=== PATIENT | male | born 1960 | race Caucasian/White ===

== ENCOUNTER 2022-10-31 08:57 | Emergency (ER) | payer OTHER, SELFPAY ==
[2022-10-31 09:08] VITALS: BP 149/78; PULSE 82; RESP 16; TEMP 37.1; O2SAT 94; BMI 28.8
--- NOTE | 2022-10-31 09:34 | CT_ITS ---
WS: [id number] CT NECK TECHNIQUE: Contrast-enhanced CT of the neck with coronal and sagittal reformatted images. Suboptimal soft tissue enhancement. CLINICAL INFORMATION: swelling pain COMPARISON: None. DLP: 264.[address] scans at [facility] use at least one of these dose optimization techniques: automated e xposure control; mA and/or kV adjustment per patient size (includes targeted exams where dose is matc hed to clinical indication); or iterative reconstruction. FINDINGS: Moderate amount of retropharyngeal fluid extending from the C1-C2 articulation to the C6/C7 vertebral body. Mild edema involving the supraglottic larynx and glottis. Subglottic airway remains patent. Pa latine tonsils appear normal. Normal parapharyngeal fat. Oropharynx is patent. Parotid glands are normal. Normal submandibular glands. Normal posterior nasopharynx and parapharynge al fat. Moderate spondylitic changes cervical spine with anterior hypertrophic changes at C4-C6. No evidence of bony destruction or osteomyelitis. MRI would be more sensitive. Ossification inferior to the C1 ar ch in combination with retropharyngeal fluid can be seen with longus colli calcific tendinitis. Preve rtebral and retropharyngeal infection should be excluded. MRI could be obtained to exclude discitis/o steomyelitis as the source of infection. CT/CT neck w con* [id number] IMPRESSION: 1. Low-attenuation fluid in the retropharyngeal space extending from C1 to C6- C7 level. Distention of the retropharyngeal space measures approximately 12 mm in maximum dimension. 2. Mild edema in the posterior wall of the hypopharynx with mild edema in the level of the glottis. Airway remains patent. 3. No significant cervical lymphadenopathy. 4. Differential considerations include upper airway infection/pharyngitis, cer vical discitis/osteomyelitis, and longus colli calcific tendinitis. Infection s hould be excluded and MRI cervical spine without and with gadolinium enhancemen t recommended Notified Aurelio Combs DO at 10/31/2022 11:29 AM.
--- NOTE | 2022-10-31 09:49 | PC.PHAR ---
pt states he has an allergy to some medication but unsure what the name is asked pts ex states she doesnt have any allergies listed for him-pt states his ex ty [phone] takes care of his medications-pts ex ty verified pts medications-states the pt hasnt restarted taking the varenicline states the pharmacy had to order the medication in -
[2022-10-31] MEDS: morphine 4 mg/mL SDV 1 mL IVP (09:50)
[2022-10-31] MEDS: orphenadrine 30 mg/mL Inj 2 mL 60 MG IVP (09:50)
[2022-10-31 09:52] LABS: Basophils # 0.1 10^3/uL (0.0-0.1); Basophils % 0.7 %; Eosinophils # 0.1 10^3/uL (0.0-0.8); Eosinophils % 0.6 %; Hematocrit 43.2 % (42.0-52.0); Hemoglobin 14.3 g/dL (11.7-16.6); Lymphocytes # 4.2 10^3/uL (0.8-4.8); Lymphocytes % 25.9 %; Mean Corpuscular HGB Conc 33.1 g/dL (30.0-36.0); Mean Corpuscular Hemoglobin 29.8 pg (28.0-34.0); Mean Platelet Volume 10.9 fL (7.4-10.4); Monocytes # 1.6 10^3/uL (0.2-0.9); Neutrophils # 10.04 10^3/uL (1.8-7.7); Neutrophils % 62.5 %; Nucleated Red Blood Cells % 0 %; Platelet Count 487 10^3/cmm (130-400); Red Cell Distribution Width 13.4 % (12.1-15.1); White Blood Count 16.1 10^3/uL (4.0-10.0)
[2022-10-31] MEDS: iohexol 350 mg/mL 500 mL Btl (per mL) IV (10:12)
[2022-10-31 10:16] LABS: Alanine Aminotransferase 9 U/L (0-41); Albumin Level 4.1 g/dL (3.5-5.2); Alkaline Phosphatase 138 U/L (40-130); Anion Gap 16.9 (5-19); Aspartate Amino Transferase 9 U/L (0-40); Blood Urea Nitrogen 15 mg/dL (8-23); Calcium 9.7 mg/dL (8.5-10.5); Carbon Dioxide 29 mmol/L (22-29); Chloride 96 mmol/L (98-107); Glomerular Filtration Rate 55.9 mL/min (90-130); Glucose 154 mg/dL (65-115); Osmolality Calculated 290 mOsm/kg (285-295); Potassium 3.9 mmol/L (3.5-5.1); Sodium 138 mmol/L (136-145); Total Bilirubin 0.9 mg/dL (0.15-1.2); Total Protein 7.1 g/dL (6.6-8.7)
--- NOTE | 2022-10-31 11:21 | MR_ITS ---
WS: [id number] MRI CERVICAL SPINE NONCONTRAST AND CONTRAST TECHNIQUE: Sagittal T1, T2 and STIR imaging. Axial T2, gradient, and fiesta imaging. Post gadolinium imaging was obtained. Some images degraded due to dental artifact. CLINICAL INFORMATION: neck pain/osteomyelitis COMPARISON: CT neck earlier today. FINDINGS: Straightening of the normal cervical lordosis. Mild spondylitic changes. Slight anterolisthesis C2 on C3. Disc bulging worse at C3-C4, C5-C6 and C6-C7. Retropharyngeal fluid collection unchanged since recent CT. This extends from the C1-C2 articulation inferiorly to the C6-C7 level. Associated surrounding soft tissue and peripheral enhancement. Associa yobani soft tissue enhancement in the C1-C2 soft tissues LEFT greater than RIGHT along the longus colli. No evidence of discitis or osteomyelitis. Small amount of fluid and edema involving the LEFT cranioo ccipital articulation and C1 -2 articulation C2-C3: Mild LEFT and no significant RIGHT foraminal narrowing. Moderate facet arthropathy. C3-C4: Mild disc bulge with mild central canal stenosis. Moderate facet arthropathy. Moderate LEFT an d mild RIGHT bony foraminal narrowing. C4-C5: Mild LEFT greater than RIGHT bony foraminal narrowing. Mild facet arthropathy. C5-C6: Mild disc bulging with small LEFT pericentral protrusion. Mild central canal stenosis. Moderat e facet arthropathy. Moderate bilateral bony foraminal narrowing. C6-C7: Shallow central disc protrusion with mild central canal stenosis. Moderate to severe LEFT and mild RIGHT bony foraminal narrowing. Moderate facet arthropathy. C7-T1: Mild facet arthropathy. Spinal canal and foramen are patent. MR/MR cervical spine wo/w [id number] IMPRESSION: Some images degraded by dental hardware with susceptibly artifact 1. Again seen is the retropharyngeal fluid collection extending from the C1 le selina to the C6 level. Associated edema and surrounding soft tissue enhancement L EFT greater than RIGHT. 2. Peripheral enhancement involving the fluid collection. Differential conside rations include retropharyngeal infection which can be seen with pharyngitis ve rsus possibly longus coli calcific tendinitis. Enhancement and increased white blood cell count suspicious for infection. 3. No evidence of discitis or osteomyelitis. 4. Mild central canal stenosis C5-C6 and C6-C7 due to small disc protrusions. Notified Aurelio Combs DO at 10/31/2022 1:56 PM.
[2022-10-31] MEDS: dexamethasone 10 mg/mL INJ IVP (11:45)
[2022-10-31] MEDS: ketorolac 30 mg/mL INJ IVP (11:45)
[2022-10-31] MEDS: gadobenate dimeglumine 20 mL vial IV (12:37)
--- NOTE | 2022-10-31 13:42 | W.ED.NECK ---
HPI - Neck Pain/Injury General: Chief Complaint: Neck Pain/Injury Stated Complaint: Aron sent for neck pain, can't swallow Time Seen by Provider: 10/31/22 09:18 Source: patient Mode of arrival: ambulatory History of Present Illness: 60-year-old male presents emergency room with complaint of neck pain, sore throat difficulty swallowing and low-grade fever. Was seen and started on antibiotics for a throat infection and is progressively worsened. Has a history of diabetes mellitus. He has exquisite tenderness on the left side of his neck states he cannot turn his neck. Denies any vomiting or diarrhea no recent injury to the neck. MD complaint: neck pain Onset (ago): day(s) Radiation: left lateral Severity: severe Quality: sharp Duration: constant Relieving factors: none Exacerbating factors: none Associated symptoms: Reports fevers/chills and swollen glands; Denies dysphagia, difficulty walking, dizziness, headache(s), nausea, tingling or weakness Review of Systems Const: Reports: fever(s), chills and body aches; Denies: change in appetite, fatigue or malaise ENMT: Reports: throat pain; Denies: ear or mastoid pain, nasal discharge or nasal congestion Card: Denies: chest pain, edema, dyspnea on exertion or orthopnea Resp: Denies: dyspnea, productive cough or non-productive cough GI: Denies: nausea or dysphagia : Denies: flank pain, dysuria, urinary frequency or urinary urgency Musc: Reports: neck pain Skin/Breast: Denies: rash or pruritus Neuro: Denies: headache(s), difficulty walking or dizziness Physical Exam Const: GENERAL APPEARANCE: cooperative ORIENTATION/CONSCIOUSNESS: Yes awake, Yes oriented to person, Yes oriented to place and Yes oriented to time HENMT: COMMON NORMALS: normocephalic, atraumatic, hearing grossly normal bilaterally, external ears normal, EAC's normal, TM's normal bilaterally, Normal nasal mucous membranes and turbinates present and moist oral mucous membranes HEAD & SCALP: normocephalic and atraumatic NOSE: Normal nasal mucous membranes and turbinates present EXTERNAL EAR: Yes external ears normal EXTERNAL AUDITORY CANAL: EAC's normal TYMPANIC MEMBRANE: TM's normal bilaterally OTHER: Posterior pharyngeal wall has significant fullness mild inflammation no exudates Eye: COMMON NORMALS: Equal, round and reactive pupils present, EOMs intact bilaterally, conjunctivae normal and no scleral icterus CONJUNCTIVA: Yes conjunctivae normal PUPIL: Yes Equal, round and reactive pupils present Neck/C-Spine: COMMON NORMALS: no JVD OTHER: Exquisite tenderness on the left sternocleidomastoid muscle Lymph: LYMPHATIC: no lymphadenopathy noted and no lymphedema noted Resp: COMMON NORMALS: normal respiratory effort, No retractions, No use of accessory muscles and clear to auscultation bilaterally AUSCULTATION: clear to auscultation bilaterally Cardio: COMMON NORMALS: no JVD, regular rate, regular rhythm and No murmurs present (Cardio) RATE: regular rate RHYTHM: regular rhythm GI: COMMON NORMALS: Soft to palpation and No hepatosplenomegaly present AUSCULTATION: Yes normoactive bowel sounds PALPATION: Yes Soft to palpation, No Tenderness to palpation present (GI), No Guarding due to palpation present (GI) and Yes No hepatosplenomegaly present Extremity: COMMON NORMALS: normal to inspection, capillary refill normal, no clubbing, cyanosis or edema, no calf tenderness and no pedal edema Neuro: SENSORIUM/ORIENTATION: Yes oriented to person, Yes oriented to place and Yes oriented to time Skin: COMMON NORMALS: no rashes or lesions noted GENERAL SKIN EXAM: no rashes or lesions noted Course Vital Signs: Vital signs: Vital Signs Temperature 98.8 F 10/31/22 09:08 Pulse Rate 82 10/31/22 09:08 Respiratory Rate 16 10/31/22 09:08 Blood Pressure 149/78 10/31/22 09:08 Pulse Oximetry 94 10/31/22 09:08 Oxygen Delivery Me thod Room Air 10/31/22 09:08 MDM - Neck Pain/Injury Medical Decision Making Symptoms improved with steroids and pain medications however CT shows a retropharyngeal fluid collection. Unfortunately we do not have any ENT coverage today. There is no sign of vertebral osteomyelitis it is possible that he has what is called longus coli which is an inflammation of the anterior longitudinal ligament. We will transfer the patient for ENT coverage and neurosurgical evaluation initiate antibiotics given along with cultures done. Medical Records I reviewed the patient's medical records. Lab Data I reviewed the patient's lab results. 10/31/22 09:46 10/31/22 09:[address] 10/31/22 09:34 IMPRESSION: 1. Low-attenuation fluid in the retropharyngeal space extending from C1 to C6-C7 level. Distention of the retropharyngeal space measures approximately 12 mm in maximum dimension. 2. Mild edema in the posterior wall of the hypopharynx with mild edema in the level of the glottis. Airway remains patent. 3. No significant cervical lymphadenopathy. 4. Differential considerations include upper airway infection/pharyngitis, cervical discitis/osteomyelitis, and longus colli calcific tendinitis. Infection should be excluded and MRI cervical spine without and with gadolinium enhancement recommended Notified Aurelio Combs DO at 10/31/2022 11:29 AM. Cervical Spine MRI 10/31/22 11:21 IMPRESSION: Some images degraded by dental hardware with susceptibly artifact 1. Again seen is the retropharyngeal fluid collection extending from the C1 level to the C6 level. Associated edema and surrounding soft tissue enhancement LEFT greater than RIGHT. 2. Peripheral enhancement involving the fluid collection. Differential considerations include retropharyngeal infection which can be seen with pharyngitis versus possibly longus coli calcific tendinitis. Enhancement and increased white blood cell count suspicious for infection. 3. No evidence of discitis or osteomyelitis. 4. Mild central canal stenosis C5-C6 and C6-C7 due to small disc protrusions. Notified Aurelio Combs DO at 10/31/2022 1:56 PM. Laboratory Results WBC 16.1 10^3/uL (4.0-10.0) H 10/31/22 09:46 RBC 4.80 10^6/uL (4.1-5.3) 10/31/22 09:46 Hgb 14.3 g/dL (11.7-16.6) 10/31/22 09:46 Hct 43.2 % (42.0-52.0) 10/31/22 09:46 MCV 90.0 fl (80-94) 10/31/22 09:46 MCH 29.8 pg (28.0-34.0) 10/31/22 09:46 MCHC 33.1 g/dL (30.0-36.0) 10/31/22 09:46 RDW 13.4 % (12.1-15.1) 10/31/22 09:46 Plt Count 487 10^3/cmm (130-400) H 10/31/22 09:46 MPV 10.9 fL (7.4-10.4) H 10/31/22 09:46 Neut % (Auto) 62.5 % 10/31/22 09:46 Lymph % (Auto) 25.9 % 10/31/22 09:46 Canadian % (Auto) 10.0 % 10/31/22 09:46 Eos % (Auto) 0.6 % 10/31/22 09:46 Baso % (Auto) 0.7 % 10/31/22 09:46 Neut # (Auto) 10.04 10^3/uL (1.8-7.7) H 10/31/22 09:46 Lymph # (Auto) 4.2 10^3/uL (0.8-4.8) 10/31/22 09:46 Canadian # (Auto) 1.6 10^3/uL (0.2-0.9) H 10/31/22 09:46 Eos # (Auto) 0.1 10^3/uL (0.0-0.8) 10/31/22 09:46 Baso # (Auto) 0.1 10^3/uL (0.0-0.1) 10/31/22 09:46 Nucleated RBC % (auto) 0 % 10/31/22 09:46 Nucleated RBCs # 0.0 /100WBC 10/31/22 09:46 Sodium 138 mmol/L (136-145) 10/31/22 09:46 Potassium 3.9 mmol/L (3.5-5.1) 10/31/22 09:46 Chloride 96 mmol/L (98-107) L 10/31/22 09:46 Carbon Dioxide 29 mmol/L (22-29) 10/31/22 09:46 Anion Gap 16.9 (5-19) 10/31/22 09:46 BUN 15 mg/dL (8-23) 10/31/22 09:46 Creatinine 1.3 mg/dL (0.7-1.2) H 10/31/22 09:46 GFR Calculation 55.9 mL/min (90-130) L 10/31/22 09:46 Glucose 154 mg/dL (65-115) H 10/31/22 09:46 POC Glucose 260 mg/dL (70-110) H 10/31/22 17:33 Calculated Osmolality 290 mOsm/kg (285-295) 10/31/22 09:46 Calcium 9.7 mg/dL (8.5-10.5) 10/31/22 09:46 Total Bilirubin 0.9 mg/dL (0.15-1.2) 10/31/22 09:46 AST 9 U/L (0-40) 10/31/22 09:46 ALT 9 U/L (0-41) 10/31/22 09:46 Alkaline Phosphatase 138 U/L (40-130) H 10/31/22 09:46 Total Protein 7.1 g/dL (6.6-8.7) 10/31/22 09:46 Albumin 4.1 g/dL (3.5-5.2) 10/31/22 09:46 Globulin 3.0 g/dL (1.3-4.6) 10/31/22 09:46 Group A Strep Rapid Negative (Negative) 10/31/22 13:50 Discharge Plan Discharge Patient Disposition: Xfer Short-Term Hosp Clinical Impression: Oropharynx infection Condition: Stable Referrals: Cateirna Sahrp NP [Primary Care Provider] - Coding Level of Care Code ED Patient Clerical Assistant for Magno Ramirez
[2022-10-31 14:07] LABS: Rapid Strep A Test Negative (Negative)
[2022-10-31] MEDS: vancomycin 1,000 MG in sodium chloride 0.9% 250 ML 250 MG IV (14:14)
[2022-10-31 17:36] LABS: Glucose Point of Care 260 mg/dL (70-110)
== END 2022-10-31 19:28 | disposition short-term general hospital (02) ==
PROVIDERS: Emergency Provider Family Medicine; PCP Nurse Practitioner Family
DX: J02.9 Acute pharyngitis, unspecified (principal); E11.9 Type 2 diabetes mellitus without complications
CPT/HCPCS: 36415; 36416; 70491; 72156; 80053; 82962; 85025; 87040; 87081; 87880; 96374; 96375; 99285; A9577; J1100; J1885; J2270; J2360; J3370; J7050; Q9967